=== PATIENT | male | born 1970 | race Caucasian/White ===

== ENCOUNTER → 2021-01-06 | Day surgery (SDC) | payer OTHER ==
[~2021-01-06] MED LIST: Ketamine 200 MG/20 ML MDV ONE; Lactated Ringers 1,000 ML IV SCH; Phenylephrine 1% 10 MG/ML SDV ONE; Propofol 200 MG/20 ML SDV ONE; fentaNYL 100 MCG/2 ML SDV ONE
--- NOTE | 2021-01-06 15:02 | OR ---
DATE OF OPERATION: 01/06/2021 PREOPERATIVE DIAGNOSIS: SCREENING COLONOSCOPY. POSTOPERATIVE DIAGNOSIS: SCREENING COLONOSCOPY. SURGEON: Jaime Rosado MD PROCEDURE: FULL-LENGTH COLONOSCOPY WITH SNARE POLYPECTOMY X2, FORCEPS POLYP REMOVAL X1. ANESTHESIA: MAC. COMPLICATIONS: None. SPECIMEN: Three small tubular adenomas, rectosigmoid junction. FINDINGS: 1. Full-length colonoscopy. 2. Tubular adenomas x3. RECOMMENDATIONS: Followup colonoscopy in 5 years. INDICATIONS: Mr. Desai was seen by his primary provider and sent for a screening colonoscopy due to his age. DESCRIPTION OF PROCEDURE: The patient was prepped and draped, placed in the left lateral decubitus position. A lubricated Olympus colonoscope was inserted and easily advanced to the cecum. Direct visualization of the ileocecal valve and appendiceal orifice was accomplished. The bowel prep was excellent, briefly intubated into the terminal ileum which was benign. Upon withdrawal, the right transverse and descending colons were completely unremarkable. The sigmoid area had no signs of any colitis, diverticula, or vascular abnormality. In the rectosigmoid junction around 20 cm, the patient had 3 small tubular adenomas. Two of these were easily removed with snare as they were stalked. The third one was a little flatter and removed in its entirety with a forceps. The first two were suctioned into polyp traps #1 and #2 respectively. The rectal vault itself appeared unremarkable. There were no gross abnormalities. Retroflexion showed no perianal lesions. Air was suctioned, the scope removed without complication. MARVIN/ADAM /[id number]
== END ==
LOC: CC.SDS 11:39
PROVIDERS: ATTEND Family Medicine
DX: Z12.11 Encounter for screening for malignant neoplasm of colon (principal); D12.7 Benign neoplasm of rectosigmoid junction; E78.5 Hyperlipidemia, unspecified; F17.210 Nicotine dependence, cigarettes, uncomplicated; E03.9 Hypothyroidism, unspecified; Z79.899 Other long term (current) drug therapy; Z79.890 Hormone replacement therapy; Z98.890 Other specified postprocedural states
CPT/HCPCS: 00812; 45380; 45385; J2370; J2704; J3010; J7120